=== PATIENT | female | born 1995 | race Caucasian/White ===

== ENCOUNTER 2018-12-27 05:58 | Inpatient (IN) ==
[2018-12-27] MEDS ORDERED: MEPERIDINE 50 MG/1 ML VIAL IV PRN (06:09)
[2018-12-27] MEDS ORDERED: LACTATED RINGERS 1,000 ML IV SCH ×3 (06:30→19:00)
[2018-12-27] MEDS ORDERED: OXYTOCIN/LR 20 UNIT/1,000 ML BAG IV SCH (06:30)
[2018-12-27 06:49] LABS: Basophils % 0.3 % (0.0-0.8); Eosinophils # 0.2 10*3/uL (0.0-0.87); Eosinophils % 1.7 % (0.00-10.9); Hematocrit 36.8 VOL% (35.7-47.0); Hemoglobin 11.3 GM/DL (12.0-16.0); Immature Granulocytes % 0.4 %; Immature Granulocytes Absolute 0.05 #; Lymphocytes # 2.1 10*3/uL (1.4-4.0); Lymphocytes % 16.7 % (21.3-54.2); Mean Corpuscular HGB Conc 30.7 GM/DL (32-36); Mean Corpuscular Hemoglobin 25 PG (27-34); Mean Corpuscular Volume 80.2 FL (87-102); Mean Platelet Volume 11.3 FL (9.6-12.0); Monocytes # 0.7 10*3/uL (0.11-0.8); Monocytes % 5.8 % (1.7-12.7); Neutrophils # 9.4 10*3/uL (1.4-7.4); Neutrophils % 75.1 % (38.7-73.9); Platelet Count 264 T/CUMM (130-400); Red Blood Count 4.59 MC/CUMM (3.8-5.5); Red Cell Distribution Width 15.6 % (9.3-17.3); White Blood Count 12.5 T/CUMM (4-12)
[2018-12-27 07:03] LABS: Alanine Aminotransferase 11 U/L (13-56); Albumin 2.8 G/DL (3.4-5.0); Alkaline Phosphatase 191 U/L (45-117); Aspartate Amino Transferase 10 U/L (0-37); Bilirubin,Total < 0.39 MG/DL (0.2-1.0); Blood Urea Nitrogen 5 MG/DL (7-18); Calcium 9.1 MG/DL (8.5-10.1); Glucose 98 MG/DL (74-106); Osmolality,Calculated 269.8 MOS/KG (273-304); Potassium 3.7 MMOL/L (3.5-5.1); Sodium 137 MMOL/L (136-145); Total Protein 7.1 G/DL (6.4-8.3)
[2018-12-27] MEDS ORDERED: ACETAMINOPHEN 500 MG TABLET PO ONE ×2 (07:49→21:46)
[2018-12-27] MEDS ORDERED: LACTATED RINGERS 1,000 ML IV ONE (08:01)
[2018-12-27] MEDS ORDERED: CITRIC ACID/SODIUM CITRATE 30 ML UDCUP PO ONE (08:01)
[2018-12-27] MEDS ORDERED: LACTATED RINGERS 500 ML IV ONE (08:01)
[2018-12-27] MEDS ORDERED: FAMOTIDINE 20 MG/2 ML VIAL IV ONE (08:01)
[2018-12-27] MEDS ORDERED: ePHEDrine 50 MG/ML AMP IV PRN (08:01)
[2018-12-27] MEDS ORDERED: NALOXONE 0.4 MG/ML VIAL IV PRN (08:02)
[2018-12-27] MEDS ORDERED: diphenhydrAMINE 50 MG/1 ML VIAL IV PRN ×2 (08:02)
[2018-12-27] MEDS ORDERED: hydrOXYzine HCL 25 MG/1 ML VIAL IM PRN (08:02)
[2018-12-27] MEDS ORDERED: PROMETHAZINE 25 MG/1 ML VIAL IM ONE (08:02)
[2018-12-27] MEDS: fentaNYL 2 MCG/ROPIV 0.2% EPID 100 ML EPIDURAL SCH ×2 (08:43→16:10)
[2018-12-27 11:05] LABS: Apearance,Urine Slightly Hazy (Clear); Glucose,Urine (UA) Negative (Negative); Ketones,Urine Negative (Negative); Protein,Urine Negative; Urine Color Yellow (Yellow)
[2018-12-27 11:06] LABS: Bilirubin,Urine Negative (Negative); Blood, Urine Trace mg/dL (Negative); Nitrite,Urine Negative (Negative)
[2018-12-27 11:07] LABS: Bacteria,Urine 1+ /HPF (Few); RBC,Urine 0-1 /HPF (0-4); Squamous Epithelial Cell,Urine Rare /HPF (0-10); Urine Urobilinogen < 2.0 EU/DL (0.2-1.0)
[2018-12-27] MEDS: ONDANSETRON 4 MG/2 ML VIAL IV PRN ×2 (12:08→19:32)
[2018-12-27] MEDS ORDERED: ceFAZolin 3,000 MG in SYRINGE 1 EACH IV ONE (17:00)
[2018-12-27] MEDS ORDERED: OXYTOCIN/LR 30 UNIT/1,000 ML BAG IV ONE (17:03)
[2018-12-27] MEDS ORDERED: OXYTOCIN 10 UNIT/ML VIAL IM ONE (17:04)
[2018-12-27] MEDS ORDERED: SODIUM CHLORIDE 0.9% 100 ML IV ONE (17:16)
[2018-12-27 18:13] LABS: Cord Venous Blood HCO3 22.5 MMOL/L; Cord Venous Blood PCO2 41.2 MMHG; Cord Venous Blood PO2 28.2
[2018-12-27] MEDS ORDERED: LIDOCAINE MPF 2% /EPI 20 ML VIAL ONE (18:41)
[2018-12-27] MEDS ORDERED: PHENYLEPHRINE 1 MG/10 ML SYRINGE IV ONE (18:41)
[2018-12-27] MEDS ORDERED: OXYTOCIN/LR 20 UNIT/1,000 ML BAG IV ONE (18:54)
[2018-12-27] MEDS ORDERED: SIMETHICONE CHEW 80 MG TABLET PO PRN (18:54)
[2018-12-27] MEDS ORDERED: RHO(D) IMMUNE GLOBULIN 300 MCG SYRINGE IM ONE (18:54)
[2018-12-27] MEDS ORDERED: ONDANSETRON 4 MG/2 ML VIAL IV PRN (18:54)
[2018-12-27] MEDS ORDERED: ACETAMINOPHEN 325 MG TABLET PO PRN (18:54)
[2018-12-27] MEDS ORDERED: KETOROLAC 30 MG/1 ML VIAL IV ONE (21:50)
[2018-12-28] MEDS: DOCUSATE SODIUM 100 MG CAPSULE PO SCH ×3 (01:24→19:49)
[2018-12-28] MEDS: ceFAZolin 1,000 MG in SYRINGE 1 EACH IV SCH ×2 (01:35→09:12)
[2018-12-28] MEDS: IBUPROFEN 800 MG TABLET PO PRN ×3 (04:19→19:48)
[2018-12-28 05:27] LABS: Basophils % 0.3 % (0.0-0.8); Eosinophils # 0.1 10*3/uL (0.0-0.87); Eosinophils % 0.5 % (0.00-10.9); Hematocrit 28.1 VOL% (35.7-47.0); Hemoglobin 8.6 GM/DL (12.0-16.0); Immature Granulocytes % 0.4 %; Immature Granulocytes Absolute 0.06 #; Lymphocytes # 1.9 10*3/uL (1.4-4.0); Lymphocytes % 13.8 % (21.3-54.2); Mean Corpuscular HGB Conc 30.6 GM/DL (32-36); Mean Corpuscular Hemoglobin 25 PG (27-34); Mean Corpuscular Volume 82.2 FL (87-102); Mean Platelet Volume 10.4 FL (9.6-12.0); Monocytes # 0.9 10*3/uL (0.11-0.8); Monocytes % 6.6 % (1.7-12.7); Neutrophils # 10.5 10*3/uL (1.4-7.4); Neutrophils % 78.4 % (38.7-73.9); Platelet Count 190 T/CUMM (130-400); Red Blood Count 3.42 MC/CUMM (3.8-5.5); Red Cell Distribution Width 15.2 % (9.3-17.3); White Blood Count 13.4 T/CUMM (4-12)
[2018-12-28] MEDS ORDERED: METOCLOPRAMIDE 10 MG/2 ML VIAL IV SCH (08:00)
[2018-12-28] MEDS: MULTIVITAMIN (PRENATAL) TABLET PO SCH (08:34)
[2018-12-28] MEDS: FERROUS SULFATE 325 MG TABLET PO SCH ×2 (08:34→19:49)
[2018-12-28] MEDS: MAGNESIUM HYDROXIDE SUSP 30 ML UDCUP PO PRN ×2 (11:40→21:34)
[2018-12-28] MEDS: METOCLOPRAMIDE 10 MG TABLET PO SCH ×2 (17:30→18:21)
[2018-12-29] MEDS: DOCUSATE SODIUM 100 MG CAPSULE PO SCH ×2 (01:43→09:54)
[2018-12-29] MEDS: FERROUS SULFATE 325 MG TABLET PO SCH ×2 (01:45→09:54)
[2018-12-29] MEDS: METOCLOPRAMIDE 10 MG TABLET PO SCH ×2 (04:07→11:46)
[2018-12-29] MEDS: MULTIVITAMIN (PRENATAL) TABLET PO SCH (09:53)
[2018-12-29 11:24] VITALS: BP 128/70
[2018-12-29] MEDS: IBUPROFEN 800 MG TABLET PO PRN (12:40)
== END 2018-12-29 14:55 | disposition home or self-care (01) | DRG 540 ==
LOC: N.LDOUT 05:58 → N.LD 06:02 → N.OB 21:35
PROVIDERS: ADMIT Obstetrics & Gynecology; ATTEND Obstetrics & Gynecology
PROC: LDCSECT (ICD-10-PCS; 2018-12-27 17:30)